=== PATIENT | male | born 1950 | race Caucasian/White ===

== ENCOUNTER 2021-02-03 16:19 | Observation (INO) ==
[2021-02-03] MEDS ORDERED: SODIUM CHLORIDE 0.9% 500 ML IV STA (16:38)
[2021-02-03 16:44] LABS: Eosinophils # (auto) 0.02 K/uL (0-0.5); Eosinophils % (auto) 0.4 %; Hemoglobin 15.4 g/dL (14.0-18.0); Lymphocytes # (auto) 2.01 K/uL (1.2-3.4); Lymphocytes % (auto) 39.2 %; Mean Corpuscular Hemoglobin 30.8 pg (25-34); Mean Platelet Volume 10.2 fL (7.4-10.4); Monocytes # (auto) 0.82 K/uL (0.11-0.59); Neutrophils # (auto) 2.28 K/uL (1.4-6.5); Neutrophils % (auto) 44.4 %; Platelet Count 241 K/uL (130-400); RDW Coefficient of Variation 12.6 % (11.5-14.5); RDW Standard Deviation 40.1 fL (36.4-46.3); White Blood Count 5.13 K/uL (4.8-10.8)
--- NOTE | 2021-02-03 16:45 | Emergency Department Note ---
History of Present Illness General Chief complaint: Syncope Stated complaint: passed out - weakness Time Seen by Provider: 02/03/21 16:26 Source: patient Mode of arrival: ambulatory Limitations: no limitations History of Present Illness This patient is a 62-year-old male is history of cardiac disease, comes in after having a syncopal episode. He was feeling his usual state of health he was running a wood splitter where he was pulling down on the lever and he said he been doing this for 1/2-hour he is not sure if he kept up with his fluids he started to feel weak and he went over to sit down and when his friends were went to get him some water he had passed out. He said there was some exhaust but he was outside. There is no trauma. No recent illness. He does have a history of recent cardiac evaluation and was hospitalized February 15 at [facility] after he presented with nausea sweaty S and heart racing. He said he had a cath and was diagnosed with "blockages but he has significant collaterals so they did not do any stenting. He is only on aspirin and metoprolol which he took both today. He denies any chest pain or shortness of breath or palpitations during this episode he feels fine except for just being a little tired. He had Covid vaccine twice with the last one in October. No lower extremity pain or swel ling. No abdominal pain. No blood or melena in his stool. No headache. No focal numbness or weakness. No difficulty speaking or swallowing. Home Medications Medication Instructions Recorded Confirmed Type aspirin 81 mg PO QAM 02/03/21 02/03/21 History atorvastatin 40 mg PO HS 02/03/21 02/03/21 History metoprolol tartrate 25 mg PO BID 02/03/21 02/03/21 History nitroglycerin 0.4 mg SUBLINGUAL .PRN/UD 02/03/21 02/03/21 History Allergies Allergy/AdvReac Type Severity Reaction Status Date / Time No Known Allergies Allergy Mild Unverified 02/03/21 17:20 Past Med/Surg History Medical History Dyslipidemia Hx of coronary artery disease Surgical History History of inguinal hernia repair Family History Father Myocardial infarction, Onset Age: 40 Social History Smoking Status: Former smoker packs per day: 0.5; Years Smoked: 10; Hx Alcohol Use: Yes Alcohol Intake Frequency: Monthly or Less Hx Substance Use: No Preferred Language: Kyrgyz Current Living Situation: Spouse Feels Safe at Home: Yes Immunizations: Past medical historycoronary artery disease. He is not on any blood thinners [facility] He is up here where his cabin is. Does not smoke Review of Systems A total of 10 systems reviewed and were otherwise negative Physical Exam Vital Signs Vital Signs - 24 hr 02/03/21 16:20 02/03/21 16:38 02/03/21 17:00 Temperature 35.9 C L Temperature Source Temporal Artery Scan Pulse Rate 60 60 73 Pulse Rate from SpO2 Sensor 72 Pulse Rhythm Regular Respiratory Rate 16 16 22 Respiratory Effort / Characteristics Non-Labored Spontaneous Respiratory Depth Normal Respiratory Pattern Regular Blood Pressure 142/80 H 154/88 H Blood Pressure Mean 100 110 Blood Pressure Position Sitting Pulse Oximetry 98 98 98 Oxygen Delivery Method Room Air Room Air Sepsis Recent Fever Within 48 Hours No Sepsis New/Unexplained Change in Mental Status N/A Sepsis Action Taken by Nursing No Action Required 02/03/21 17:30 02/03/21 18:00 02/03/21 18:30 Temperature Temperature Source Pulse Rate 80 79 84 Pulse Rate from SpO2 Sensor 78 78 83 Pulse Rhythm Respiratory Rate 16 9 L 23 Respiratory Effort / Characteristics Respiratory Depth Respiratory Pattern Blood Pressure 165/81 H 164/77 H 153/74 H Blood Pressure Mean 109 106 100 Blood Pressure Position Pulse Oximetry 99 98 98 Oxygen Delivery Method Sepsis Recent Fever Within 48 Hours Sepsis New/Unexplained Change in Mental Status Sepsis Action Taken by Nursing 02/03/21 19:00 02/03/21 19:30 02/03/21 19:37 Temperature Temperature Source Pulse Rate 82 81 81 Pulse Rate from SpO2 Sensor 81 82 Pulse Rhythm Respiratory Rate 24 17 17 Respiratory Effort / Characteristics Respiratory Depth Respiratory Pattern Blood Pressure 164/90 H 158/91 H 158/91 H Blood Pressure Mean 114 113 Blood Pressure Position Pulse Oximetry 99 97 97 Oxygen Delivery Method Room Air Sepsis Recent Fever Within 48 Hours Sepsis New/Unexplained Change in Mental Status Sepsis Action Taken by Nursing General: Well developed well nourished not ill-appearing middle-age male who appears in no acute distress, breathing comfortably on room air. Normal speech HEENT: Normal cephalic atraumatic. Pupils are equal round and reactive to light. Extraocular movements are intact. Oropharynx is pink with moist mucous membranes. No swelling of the mouth lips or tongue. Neck: Supple with a midline trachea. No meningeal signs or stiffness, no JVD or bruits. No Stridor. Chest: Clear to auscultation bilaterally. No wheezes or rhonchi. No increased work of breathing. Heart: Regular rate and rhythm without murmurs or gallops. Abdomen: Soft nontender, nondistended without rebound guarding or rigidity. Extremities: No cyanosis clubbing or edema. No calf tenderness or assymetry Spine/Back. Non tender to palpation. No CVA tenderness Skin: Good turgor without rashes. Neurologic exam: Cranial nerves two through 12 are intact. Motor and sensation are intact and symmetrical throughout. Course Administered Medications Discontinued Medications Sodium Chloride (Nss) 500 mls @ 999 mls/hr IV .Q31M STA Stop: 02/03/21 17:08 Last Infusion: 02/03/21 17:23 Dose: 0 mls/hr Documented by: [id number] Admin: 02/03/21 16:45 Dose: 999 mls/hr Documented by: [id number] Medical Decision Making Differential Diagnosis Acute coronary syndrome, syncope, arrhythmia, vasovagal episode, dehydration, valvular heart disease, electrolyte or metabolic abnormality, anemia, GI bleed Laboratory Data Attestation: I reviewed the patient's lab results. Result diagrams: 02/03/21 16:35 02/03/21 16:35 Lab Results 02/03/21 02/03/21 02/03/21 Range/Units 16:35 16:35 17:32 WBC 5.13 (4.8-10.8) K/uL RBC 5.00 (4.7-6.1) M/uL Hgb 15.4 (14.0-18.0) g/dL Hct 44.0 (42-52) % MCV 88.0 (80-100) fL MCH 30.8 (25-34) pg MCHC 35.0 (32-36) g/dL RDW Std Deviation 40.1 (36.4-46.3) fL RDW Coeff of Paulo 12.6 (11.5-14.5) % Plt Count 241 (130-400) K/uL MPV 10.2 (7.4-10.4) fL Immature Gran % (Auto) 0.0 % Neut % (Auto) 44.4 % Lymph % (Auto) 39.2 % [place] % (Auto) 16.0 % Eos % (Auto) 0.4 % Baso % (Auto) 0.0 % Neut # (Auto) 2.28 (1.4-6.5) K/uL Lymph # (Auto) 2.01 (1.2-3.4) K/uL [place] # (Auto) 0.82 H (0.11-0.59) K/uL Eos # (Auto) 0.02 (0-0.5) K/uL Baso # (Auto) 0.00 (0-0.2) K/uL Immature Gran # (Auto) 0.00 (0.00-0.02) K/uL Sodium 143 (136-145) mmol/L Potassium 4.3 (3.5-5.1) mmol/L Chloride 111 H (98-107) mmol/L Carbon Dioxide 30 (21-32) mmol/L Anion Gap 2.0 L (3-11) BUN 18 (7-18) mg/dl Creatinine 0.99 (0.6-1.4) mg/dl Est Cr Clr Drug Dosing Not Reportable Est GFR ( Amer) 90.3 Est GFR (Non-Af Amer) 77.9 BUN/Creatinine Ratio 17.9 (10-20) Glucose 120 H (70-99) mg/dl Calcium 9.1 (8.5-10.1) mg/dl Total Bilirubin 2.3 H (0.2-1) mg/dl AST 25 (15-37) U/L ALT 36 (12-78) U/L Alkaline Phosphatase 141 H (45-117) U/L Troponin I < 0.015 (0-0.045) ng/ml Total Protein 8.0 (6.4-8.2) gm/dl Albumin 3.8 (3.4-5.0) gm/dl Globulin 4.2 H (2.5-4.0) gm/dl Albumin/Globulin Ratio 0.9 (0.9-2) Lipase 107 (73-393) U/L COVID-19 Eval Order CovFluRsv at [facility] SARS-CoV-2 (PCR) (Negative) Influenza Type A (PCR) (Neg) Influenza Type B (PCR) (Neg) RSV (RT-PCR) (Neg) 02/03/21 Range/Units 17:32 WBC (4.8-10.8) K/uL RBC (4.7-6.1) M/uL Hgb (14.0-18.0) g/dL Hct (42-52) % MCV (80-100) fL MCH (25-34) pg MCHC (32-36) g/dL RDW Std Deviation (36.4-46.3) fL RDW Coeff of Paulo (11.5-14.5) % Plt Count (130-400) K/uL MPV (7.4-10.4) fL Immature Gran % (Auto) % Neut % (Auto) % Lymph % (Auto) % [place] % (Auto) % Eos % (Auto) % Baso % (Auto) % Neut # (Auto) (1.4-6.5) K/uL Lymph # (Auto) (1.2-3.4) K/uL [place] # (Auto) (0.11-0.59) K/uL Eos # (Auto) (0-0.5) K/uL Baso # (Auto) (0-0.2) K/uL Immature Gran # (Auto) (0.00-0.02) K/uL Sodium (136-145) mmol/L Potassium (3.5-5.1) mmol/L Chloride (98-107) mmol/L Carbon Dioxide (21-32) mmol/L Anion Gap (3-11) BUN (7-18) mg/dl Creatinine (0.6-1.4) mg/dl Est Cr Clr Drug Dosing Est GFR ( Amer) Est GFR (Non-Af Amer) BUN/Creatinine Ratio (10-20) Glucose (70-99) mg/dl Calcium (8.5-10.1) mg/dl Total Bilirubin (0.2-1) mg/dl AST (15-37) U/L ALT (12-78) U/L Alkaline Phosphatase (45-117) U/L Troponin I (0-0.045) ng/ml Total Protein (6.4-8.2) gm/dl Albumin (3.4-5.0) gm/dl Globulin (2.5-4.0) gm/dl Albumin/Globulin Ratio (0.9-2) Lipase (73-393) U/L COVID-19 Eval Order SARS-CoV-2 (PCR) NEGATIVE (Negative) Influenza Type A (PCR) Negative (Neg) Influenza Type B (PCR) Negative (Neg) RSV (RT-PCR) Negative (Neg) Imaging Data Attestation: I personally reviewed and interpreted this imaging study as follows: My Impression: X-ray Radiologist's Impression: Chest X-Ray 02/03/21 16:38 XR chest 1V portable CLINICAL HISTORY: Atypical chest pain COMPARISON STUDY: No previous studies for comparison. FINDINGS: The heart is enlarged. There is mild interstitial thickening. There is no lobar consolidation. There are no significant pleural effusions[ IMPRESSION: 1. Cardiomegaly and mild nonspecific interstitial thickening. No evidence of l obar consolidation ACT 112: Negative or not required by law. Electronically signed by: Mukul Ortiz M.D. 02/03/2021 5:03 PM ECG Data Attestation: I personally reviewed and interpreted this ECG as follows: Indication: + syncope Rate (beats per minute): 63 Rhythm: + normal sinus ECG Intervals/blocks: + Normal QRS, + Normal QT and + Normal ID ECG [place]: + Normal ECG ST segments: + repolarization abnormalities ECG Findings: no PACs and no PVCs Comparison ECG Date: no prior available Additional Comments: EKG #2: Upon my interpretation, normal sinus rhythm with a rate of 71. Nonspecific ST abnormalities. No significant change when compared to EKG #1. Normal intervals. No ectopy. MDM Narrative This patient comes in after having a syncopal episode he does have a concerning cardiac history otherwise no chest pain or shortness of breath. Initial EKG does not show any definite ischemic changes. He is asymptomatic at present with exception feeling slightly tired. IV access established he was placed on a whizzer room C8. Multiple blood testing was obtained as well as chest x-ray. He was reassessed frequently. EKG shows no definite ischemic changes and I did a second EKG and there is no change compared to EKG #1. He seems to feeling better after receiving 500 cc IV normal saline bolus. Chest x-ray shows some mild increased interstitial markings but no definite heart failure, pneumonia, or pneumothorax. His initial troponin is negative. There is no acute electrolyte or metabolic abnormalities. I do think he would benefit from admission/observation given his cardiac disease history. He has taken aspirin already today. I have consulted Dr. Bradley and the [facility] hospitalist group to see him in the ER for further treatment and evaluation. Continuous cardiac monitoring: Due to the patient's complaint of syncope and weakness with a cardiac history an order was placed in the EMR for continuous cardiac monitoring. Upon my interpretation he was noted to be in normal sinus rhythm pulse of 65. Impression & Plan Syncope, Hx of coronary artery disease, Lab test negative for COVID-19 virus, Dehydration Discharge Plan Visit Data Chief Complaint: Syncope Stated Complaint: passed out - weakness ED Provider: Christina Gastelum Discharge Problem: Syncope, Hx of coronary artery disease, Lab test negative for COVID-19 virus, Dehydration Discharge Instructions Interventions: ED Discharge Assessment Last Done: 02/03/21 19:37 Forms Stand Alone Forms: My [facility] Prescriptions Prescriptions: No Action metoprolol tartrate 25 mg tablet 25 mg PO BID RF: 0 aspirin 81 mg tablet,chewable 81 mg PO QAM RF: 0 nitroglycerin 0.4 mg tablet, sublingual 0.4 mg sublingual .PRN/UD RF: 0 atorvastatin 40 mg tablet 40 mg PO HS RF: 0 Referrals Referrals: CHRISTINA CHAVEZ [Other] Discharge Problem: Syncope Qualifiers: Syncope type: unspecified Qualified Code(s): R55 - Syncope and collapse
[2021-02-03 17:00] LABS: Alanine Aminotransferase 36 U/L (12-78); Albumin Level 3.8 gm/dl (3.4-5.0); Aspartate Aminotransferase 25 U/L (15-37); BUN Creatinine Ratio 17.9 (10-20); Blood Urea Nitrogen 18 mg/dl (7-18); Calcium 9.1 mg/dl (8.5-10.1); Carbon Dioxide 30 mmol/L (21-32); Chloride 111 mmol/L (98-107); Est GFR (African American) 90.3; Est GFR (Non-African American) 77.9; Glucose 120 mg/dl (70-99); Lipase 107 U/L (73-393); Potassium 4.3 mmol/L (3.5-5.1); Sodium 143 mmol/L (136-145)
--- NOTE | 2021-02-03 17:04 | XRay Report ---
XR chest 1V portable CLINICAL HISTORY: Atypical chest pain COMPARISON STUDY: No previous studies for comparison. FINDINGS: The heart is enlarged. There is mild interstitial thickening. There is no lobar consolidati on. There are no significant pleural effusions[ IMPRESSION: 1. Cardiomegaly and mild nonspecific interstitial thickening. No evidence of lobar consolidation ACT 112: Negative or not required by law. Electronically signed by: Mukul Ortiz M.D. 02/03/2021 5:03 PM
[2021-02-03 17:05] LABS: Albumin Globulin Ratio 0.9 (0.9-2); Alkaline Phosphatase 141 U/L (45-117); Bilirubin,Total 2.3 mg/dl (0.2-1); Globulin 4.2 gm/dl (2.5-4.0); Troponin I < 0.015 ng/ml (0-0.045)
--- NOTE | 2021-02-03 18:14 | History & Physical Report ---
Date of Service February 03, 2021 Assessment & Plan (1) Syncope: Most likely vasovagal in the setting of acute dehydration and metoprolol use. Given history however will observe on telemetry overnight for arrhythmia. If nothing on telemetry and troponins negative can likely be discharged tomorrow. 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 (2) Hx of coronary artery disease: Continue his usual medications aspirin, atorvastatin, metoprolol tartrate (3) Dyslipidemia: Continue atorvastatin Admission and Anticipated Discharge Date Admission Date: February 03, 2021 History of Present Illness Chief Complaint: Syncope Primary Care Provider: CHRISTINA CHAVEZ Sim Ramírez is a 70-year-old male with coronary artery disease who presents to the ER after a syncopal event. At 2:30 PM the patient was working on a wood saw outside. He reports getting very hot, getting exhaust fumes in his face and not drinking enough water. He began to feel dizzy and lightheaded. Upon sitting down his friends noticed him collapsing and caught him before he hit the ground. He fully lost consciousness and came around in a matter of a few minutes. He denies any chest pain, claudication, orthopnea, PND, palpitations. He has a significant recent history of coronary artery disease. He denies any myocardial infarction although reports having a cardiac catheterization after an episode of what felt like an anxiety attack with diaphoresis and elevated troponins. [facility] was [facility] on December 16, 2020. Notes of this hospitalization are not available on admission therefore I am reliant on the patient's recollection. He reports his right coronary artery was 100% occluded but he had good collaterals therefore no stents were placed and no bypass recommended. He denies having any arrhythmia. He once had recurrence of these symptoms 3 weeks ago but put this down to running out of his metoprolol which he took today. He reports the syncopal event today was very different to this presentation. In the ER his initial troponin is negative and EKG unremarkable. However given his recent history he was referred to medicine for admission ongoing management of syncope. Allergies Allergy/AdvReac Type Severity Reaction Status Date / Time No Known Allergies Allergy Mild Unverified 02/03/21 17:20 Home Medications Medication Instructions Recorded Confirmed Type aspirin 81 mg PO QAM 02/03/21 02/03/21 History atorvastatin 40 mg PO HS 02/03/21 02/03/21 History metoprolol tartrate 25 mg PO BID 02/03/21 02/03/21 History nitroglycerin 0.4 mg SUBLINGUAL .PRN/UD 02/03/21 02/03/21 History Past Med/Surg History Medical History Dyslipidemia Hx of coronary artery disease Surgical History History of inguinal hernia repair Family History Father Myocardial infarction, Onset Age: 40 Social History Smoking Status: Former smoker packs per day: 0.5; Years Smoked: 10; Hx Alcohol Use: No Hx Substance Use: No Preferred Language: Divehi Communication Ability: Effective Counseling Psychologist Required: No Beliefs That Will Affect Care: None Current Living Situation: Spouse Feels Safe at Home: Yes Assistive Devices: Glasses Review of Systems Review of Systems: All systems reviewed & are unremarkable except as noted in HPI & below Physical Exam Constitutional: well developed and well nourished; no acute distress Eyes: + anicteric sclerae; normal pupil size ENMT: external ear and nose normal, oropharynx normal Neck: trachea midline, no thyromegaly Respiratory: normal respiratory effort, lungs clear to auscultation Cardiovascular: Rate/Rhythm: regular rate and regular rhythm Extremities: normal capillary refill and + pedal edema (Trace pretibial); no calf tenderness Gastrointestinal (Abdomen): normal bowel sounds, soft, nontender, no hepatosplenomegaly Musculoskeletal: no cyanosis or clubbing, extremities motor strength 5/5 Skin: no rashes, warm and dry Neurologic: moves all extremities and awake; not confused Psychiatric: A+Ox3, euthymic affect Genitourinary: no CVA tenderness Results & Data Results & Data ([facility]) Vital Signs (Past 12 Hours) Vital Signs Temp Pulse Resp BP Pulse Ox 02/03/21 17:30 80 16 165/81 H 99 02/03/21 17:00 73 22 154/88 H 98 02/03/21 16:38 60 16 98 02/03/21 16:20 35.9 C L 60 16 142/80 H 98 Diagnostic Findings XR chest 1V portable IMPRESSION: 1. Cardiomegaly and mild nonspecific interstitial thickening. No evidence of lobar consolidation Medications Administered ER medications given: NSS 500 mL bolus ECG Rate (beats per minute): 63 Rhythm: normal sinus Findings: no acute ischemic change Change: no significant change Additional Comments: No dynamic changes across 2 EKGs performed in the emergency room Code Status & VTE Plan Code Status Full VTE Prophylaxis Plan VTE Prophylaxis will be ordered: No Reason for no VTE drug order: Treatment not indicated Reason for no VTE mechanical prophylaxis: Treatment not indicated PG Care Time/CCT Total # of Minutes Spent Total Time Spent with Patient: Total time spent is greater than 50% in coordination of care (as documented) at patient's floor/unit and/or counseling patient: Coding Level of Care Code 28259 OBS Care - Level 2 Diagnoses Syncope R55 Syncope type: vasovagal syncope Hx of coronary artery disease Z86.79 Dyslipidemia E78.5 (1) Syncope Syncope type: vasovagal syncope Qualified Code(s): R55 - Syncope and collapse
[2021-02-03 18:34] LABS: Influenza A virus by PCR Negative (Neg); Influenza B virus by PCR Negative (Neg); RSV by PCR Negative (Neg); SARS CoV2 RNA(COVID-19) InHosp NEGATIVE (Negative)
[2021-02-03] MEDS ORDERED: NITROGLYCERIN SL 0.4 MG/TAB TAB SL PRN (20:26)
[2021-02-03] MEDS ORDERED: ATORVASTATIN 40 MG TAB PO SCH (21:00)
[2021-02-03] MEDS: METOPROLOL TARTRATE 25 MG TAB PO SCH (21:09)
[2021-02-04] MEDS: METOPROLOL TARTRATE 25 MG TAB PO SCH (08:40)
[2021-02-04] MEDS ORDERED: ASPIRIN 81 MG ECTAB PO SCH (09:00)
--- NOTE | 2021-02-04 16:50 | Discharge Summary ---
Date of Service February 04, 2021 Principal Diagnosis syncope Discharge Exam In general he is awake alert oriented pleasant no distress. HEENT normocephalic atraumatic mucous membranes moist. Breathing unlabored no accessory muscle use good effort. Skin shows no rashes no pallor or icterus. Neuro shows no focal deficits. Discharge Data Allergies Allergy/AdvReac Type Severity Reaction Status Date / Time No Known Allergies Allergy Mild Unverified 02/03/21 17:20 Consultations 02/03/21 17:22 ED Decision to Admit Stat Hospital Course (1) Syncope: Most likely vasovagal in the setting of acute dehydration and metoprolol use. Observe to monitor for arrhythmia, none identified. Patient felt great and very much wanted to go home. Incidentally found to have a bilirubin of 2.3 and an alk phos of 141no prior for comparison. Certainly this is a fairly common pattern of mild and nonspecific lab abnormalities, but asked him simply to follow-up with his regular team in this respect (2) Hx of coronary artery disease: Stable (3) Dyslipidemia: Continue atorvastatin Total Time Total Time Spent Total Time Spent (In Minutes): <30 Discharge Plan Discharge Items Patient Disposition: Home - Self-Care Reason For Visit: SYNCOPE Discharge Diagnosis: syncope (fainting spell) Activity: Resume your previous activity Non-emergency contact: Primary Care Provider Call non-emergency contact if: you have any medication questions and your symptoms worsen Follow-up/Referrals: CHRISTINA CHAVEZ [Other] Diet: Regular Addtl Attending Provider Instructions: syncope (fainting spell) - in your situation, fortunately we did not unearth anything worrisome - it appears that the fainting spell was really just a combination of standing for a while as you were splitting logs, being a bit overheated and dehydrated, and having a bit of the smell of the exhaust all combining to your passing out. other than realizing that it's Ok to take it slower in the future/take breaks more/make sure you stay well hydrated, there's fortunately not much of anything specific you'll need to do as an incidental finding you did have very slight elevations of two labtests - bilirubin (2.3, normal for our lab up to 1.0) and alk phos (141, normal for our lab up to 117) - most commonly labs elevated this mildly mean nothing, but it would be worth having your regular docs compare to prior testing (if it's the same as you've been, then there's really not much of anything to do) or if there aren't prior results on record, then repeating those labs in about a month to ensure nothing is trending the wrong direction Pending Studies at Discharge: No Stand-Alone Forms: My [facility], Smoking Cessation Medications and DC Order Prescriptions: Continued metoprolol tartrate 25 mg tablet 25 mg PO BID RF: 0 aspirin 81 mg tablet,chewable 81 mg PO QAM RF: 0 nitroglycerin 0.4 mg tablet, sublingual 0.4 mg sublingual .PRN/UD RF: 0 atorvastatin 40 mg tablet 40 mg PO HS RF: 0 Discharge Orders: Discharge Order (Routine); Ordered 02/04/21 Ordered By: Min Martin/Other Patient Handouts: Understanding Vasovagal Syncope Admission Data Admit Date/Time: 02/03/21 18:16 Attending Provider: Min Proctor Admit Provider: Benson Bradley Other Providers: Benson Bradley Other Interventions: Discharge Summary Assessment (RN) Last Done: 02/04/21 12:20 Coding Level of Care Code 63457 OBS Care - Discharge Diagnoses Syncope R55 Syncope type: vasovagal syncope Hx of coronary artery disease Z86.79 Dyslipidemia E78.5
--- NOTE | 2021-02-04 21:47 | Electrocardiogram Report ---
Test Reason : Blood Pressure : / mmHG Vent. Rate : 063 BPM Atrial Rate : 063 BPM P-R Int : 154 ms QRS Dur : 102 ms QT Int : 430 ms P-R-T Axes : 035 041 013 degrees QTc Int : 440 ms Normal sinus rhythm Possible Left atrial enlargement Borderline ECG No previous ECGs available Confirmed by Armando Messina ([id number]) on 02/04/2021 9:47:33 PM Referred By: REFERRED SELF Confirmed By:Armando Messina
--- NOTE | 2021-02-04 21:55 | Electrocardiogram Report ---
Test Reason : Blood Pressure : / mmHG Vent. Rate : 071 BPM Atrial Rate : 071 BPM P-R Int : 156 ms QRS Dur : 108 ms QT Int : 406 ms P-R-T Axes : 036 032 -05 degrees QTc Int : 441 ms Normal sinus rhythm Possible Left atrial enlargement Nonspecific ST abnormality Abnormal ECG When compared with ECG of 03-FEB-2021 16:29, (unconfirmed) No significant change was found Confirmed by Armando Messina ([id number]) on 02/04/2021 9:55:18 PM Referred By: REFERRED SELF Confirmed By:Armando Messina
== END 2021-02-04 13:53 | disposition home or self-care (01) ==
LOC: 2N 16:19 → ED 16:19 → SUATTDRO 18:16 → 2N 19:37